=== PATIENT | female | born 1960 | race Caucasian/White ===

== ENCOUNTER 2018-05-05 10:11 | Emergency (ER) | payer OTHER ==
[~2018-05-05] VITALS: Ht 175.3 cm; Wt 100.0 kg
[2018-05-05 10:15] VITALS: BP 147/85; PULSE 69; RESP 16; TEMP 98.4; O2SAT 99
[2018-05-05] MEDS ORDERED: LEXA10TA PO (10:25)
--- NOTE | 2018-05-05 10:29 | PD ---
HPI Chief Complaint: Skin Problem Time Seen by Provider: 10:19 Travel History International Travel<30 days: No Contact w/Intl Traveler<30days: No Traveled to known affect area: No History of Present Illness HPI 57 y/o female states she just got back from a 2 week trip to [place] and yesterday noticed a painful lump to her upper left leg. She states she also noted 1 to the back of her left upper leg. She denies any trauma. She denies any other concurrent complaints. Quality is lump. Location is left upper thigh. She denies specific modifying factors. She denies recurrent history of this. She denies prior history of blood clots. [facility] Past Medical History Narrative Medical Recent diverticulitis with completion of Flagyl Past Surgical History Other Surgery: Yes (Groin aneurysm) Social History Tobacco Use: No Allergies-Medications (Allergen,Severity, Reaction): Coded Allergies: sulfamethoxazole (Verified Allergy, Unknown, Rash, 05/05/18) trimethoprim (Verified Allergy, Unknown, Rash, 05/05/18) Reported Meds & Prescriptions Reported Meds & Active Scripts Active Reported Lexapro (Escitalopram Oxalate) 10 Mg Tab 10 Mg PO DAILY Review of Systems Except as stated in HPI: all other systems reviewed are Neg Physical Exam Narrative GENERAL: 57-year-old female in no apparent distress SKIN: Focused skin assessment warm/dry. To mid medial left upper thigh there is a small area of redness without associated induration or crepitus, question superficial thrombophlebitis HEAD: Atraumatic. Normocephalic. EYES: Pupils equal and round. No scleral icterus. No injection or drainage. ENT: No nasal bleeding or discharge. Mucous membranes pink and moist. NECK: Trachea midline. No JVD. CARDIOVASCULAR: Regular rate and rhythm. RESPIRATORY: No accessory muscle use. MUSCULOSKELETAL: No obvious deformities. No clubbing. No cyanosis. No edema. NEUROLOGICAL: Awake and alert. No obvious cranial nerve deficits. Motor grossly within normal limits. Normal speech. PSYCHIATRIC: Appropriate mood and affect; insight and judgment normal. Data Data Last Documented VS Vital Signs Date Time Temp Pulse Resp B/P (MAP) Pulse Ox O2 Delivery O2 Flow Rate FiO2 05/05/18 10:15 98.4 69 16 147/85 (105) 99 Orders Orders Us Leg Venous Doppler (05/05/18 ) Ed Discharge Order (05/05/18 13:00) [facility] Medical Decision Making Medical Screen Exam Complete: Yes Emergency Medical Condition: Yes Medical Record Reviewed: Yes (Past history confirmed) Interpretation(s) Last 24 hours Impressions Lower Extremity Ultrasound 05/05/18 0000 Signed Impressions: CONCLUSION: 1. There is thrombus within the superficial vein on the medial aspect of the k nee and anterior thigh. 2. The deep veins of the left lower extremity are patent. Differential Diagnosis DVT, thrombophlebitis, Velasco's cyst Narrative Course Will check ultrasound and reevaluate. Ultrasound with superficial thrombosis. Patient will take anti-inflammatory and warm compresses with close follow-up with her primary care physician. Given return instructions. Patient denies any new complaints and states that they are feeling better. Patient happy with care, all questions answered. Patient knows that follow up is incumbent on them and to return to the emergency room immediately if new or worsening symptoms develop. Patient given strict return precautions, vitals reviewed and are normal, agrees to further workup as an outpatient. given copy of ultrasound Diagnosis Primary Impression: Superficial thrombophlebitis Qualified Codes: I80.02 - Phlebitis and thrombophlebitis of superficial vessels of left lower extremity Patient Instructions: General Instructions Additional Instructions: return as needed, motrin with food as needed, warm compresses, follow with primary this week for recheck Med/Other Pt SpecificInfo: No Change to Meds Disposition: 01 DISCHARGE HOME Condition: Stable Elisa Finley MD May 05, 2018 10:29
--- NOTE | 2018-05-05 12:51 | RADRPT ---
EXAM DATE: 05/05/2018 12:44 PM EDT AGE/SEX: 57 years / Female INDICATIONS: Left lower extremity pain after long airplane trip. CLINICAL DATA: This is the patient's initial encounter. Patient reports that signs and symptoms have been present for 2 days and indicates a pain score of 1/10. MEDICAL/SURGICAL HISTORY: Diverticulitis. Cholecystectomy. Groin aneurysm repair. COMPARISON: No prior exams available for comparison. TECHNIQUE: Venous ultrasound of both lower extremities was performed from the inguinal ligament to t he proximal calf. Real-time, color Doppler and spectral tracing, compression and augmentation techni ques were used. FINDINGS: There are abnormal intraluminal echoes and lack of normal compression within the superfici al vein on the medial aspect of the knee and anterior mid thigh. However, the deep veins of the left lower extremity demonstrates normal compression, blood flow, and augmentation. CONCLUSION: 1. There is thrombus within the superficial vein on the medial aspect of the knee and anterior thigh . 2. The deep veins of the left lower extremity are patent. Electronically signed by: Jasen Casillas MD 05/05/2018 12:49 PM EDT
[2018-05-05 13:16] VITALS: BP 140/68
== END 2018-05-05 13:17 | disposition home or self-care (01) ==
LOC: PHED 10:11
DX: I80.02 Phlebitis and thrombophlebitis of superficial vessels of left lower extremity (principal); Z79.899 Other long term (current) drug therapy; Z88.2 Allergy status to sulfonamides; Z88.8 Allergy status to other drugs, medicaments and biological substances
CPT/HCPCS: 93971; 99284